=== PATIENT | female | born 1985 | race American Indian/Alaskan Native ===

== ENCOUNTER 2020-09-14 06:08 | Inpatient (IN) | payer OTHER ==
[2020-09-14 08:13] LABS: BILIRUBIN NEGATIVE (NEGATIVE); BLOOD NEGATIVE Ery/uL (NEGATIVE); CLARITY CLEAR (CLEAR); COLOR YELLOW (YELLOW); GLUCOSE (U) NORMAL (NORMAL); LEUKOCYTES 1+ Leu/uL (NEGATIVE); NITRITE NEGATIVE (NEGATIVE); PROTEIN NEGATIVE (NEGATIVE); SPECIFIC GRAVITY 1.015 (1.001-1.030); UROBILINOGEN 0.2 mg/dL (0.2-1.0)
[2020-09-14 08:16] LABS: PLT 299 K/uL (150-400)
[2020-09-14 08:25] LABS: BACTERIA TRACE; SQUAMOUS EPITHELIAL CELLS 20-50; URINARY RBC RARE
[2020-09-14 09:36] LABS: HCT 35.6 % (37.0-47.0); MCH 29.2 pg (25.0-31.0); MCHC 33.7 g/dL (32.0-36.0); MCV 86.6 fL (78.0-100.0); MPV 10.2 fL (6.0-9.5); RBC 4.11 M/uL (4.20-5.40); RDW 13.6 % (11.5-14.0); WBC 7.3 K/uL (4.0-10.5)
[2020-09-15 05:20] LABS: HCT 31.2 % (37.0-47.0); HGB 10.4 g/dl (12.5-16.0); MCH 28.8 pg (25.0-31.0); MCHC 33.3 g/dL (32.0-36.0); MCV 86.4 fL (78.0-100.0); MPV 9.4 fL (6.0-9.5); RBC 3.61 M/uL (4.20-5.40); RDW 13.6 % (11.5-14.0)
[2020-09-16] MEDS ORDERED: MOTRIN600 MG PO (08:55)
[2020-09-16] MEDS ORDERED: FEOSOL325 MG PO (08:56)
[2020-09-16] MEDS ORDERED: PRENATAL FORMU1 EACH PO (08:57)
[2020-09-16] MEDS ORDERED: ORTHO MICRONO0.35 MG PO (09:04)
== END 2020-09-16 11:17 | disposition home or self-care (01) | DRG 807 ==
LOC: FOB 06:08
PROVIDERS: ADMIT Obstetrics & Gynecology
PROC: 10E0XZZ Delivery of Products of Conception, External Approach (ICD-10-PCS; principal; 2020-09-14)
PROC: 10907ZC Drainage of Amniotic Fluid, Therapeutic from Products of Conception, Via Natural or Artificial Opening (ICD-10-PCS; 2020-09-14)
PROC: 0UQMXZZ Repair Vulva, External Approach (ICD-10-PCS; 2020-09-14)
DX: O41.03X0 Oligohydramnios, third trimester, not applicable or unspecified (principal); Z37.0 Single live birth; Z3A.39 39 weeks gestation of pregnancy; O71.82 Other specified trauma to perineum and vulva; Z20.822 Contact with and (suspected) exposure to COVID-19; O69.81X0 Labor and delivery complicated by cord around neck, without compression, not applicable or unspecified
CPT/HCPCS: 36415; 81001; 85049; 86850; 86900; 86901; J7120; U0002

== ENCOUNTER 2021-04-20 16:49 | Inpatient (IN) | payer OTHER ==
[~2021-04-20] VITALS: Ht 162.6 cm; Wt 78.6 kg
[~2021-04-20 16:49] MED LIST: FEOSOL325 MG PO; MOTRIN600 MG PO; ORTHO MICRONO0.35 MG PO; PRENATAL FORMU1 EACH PO
[2021-04-20 17:59] LABS: BASOPHIL 0.2 % (0-2); EOSINOPHIL 0.1 % (0-5); HCT 37.6 % (37.0-47.0); HGB 12.6 g/dl (12.5-16.0); LYMPHOCYTE 5.4 % (15-48); MCH 28.8 pg (25.0-31.0); MCHC 33.5 g/dL (32.0-36.0); MONOCYTE 8.7 % (0-12); MPV 9.4 fL (6.0-9.5); NEUTROPHIL 84.8 % (41-80); NRBC 0; PLT 308 K/uL (150-400); RBC 4.37 M/uL (4.20-5.40); RDW 12.4 % (11.5-14.0); WBC 19.2 K/uL (4.0-10.5)
[2021-04-20 18:16] LABS: ALBUMIN 3.7 g/dL (3.4-5.0); BILIRUBIN - TOTAL 0.8 mg/dL (0.2-1.0); BUN/CREAT RATIO (CALC) 7.5 RATIO; CREATININE 0.8 mg/dL (0.51-0.95); POTASSIUM 3.5 mmol/L (3.5-5.1); TOTAL PROTEIN 7.7 g/dL (6.4-8.2)
[2021-04-20 18:20] LABS: BILIRUBIN NEGATIVE (NEGATIVE); BLOOD 2+ Ery/uL (NEGATIVE); CLARITY CLEAR (CLEAR); COLOR YELLOW (YELLOW); GLUCOSE (U) NORMAL (NORMAL); LEUKOCYTES 2+ Leu/uL (NEGATIVE); NITRITE NEGATIVE (NEGATIVE); PROTEIN 2+ mg/dL (NEGATIVE); SPECIFIC GRAVITY 1.015 (1.001-1.030); UROBILINOGEN 0.2 mg/dL (0.2-1.0)
[2021-04-20 18:29] LABS: BACTERIA 3+; URINARY WBC TNTC
[2021-04-20 19:45] LABS: CORONAVIRUS 2019 SARS-COV-2 NEGATIVE (NEGATIVE); INFLUENZA A NAA NEGATIVE (NEGATIVE)
[2021-04-21 03:57] LABS: BASOPHIL 0.2 % (0-2); EOSINOPHIL 0.2 % (0-5); HCT 33.7 % (37.0-47.0); HGB 11.5 g/dl (12.5-16.0); MCH 29.3 pg (25.0-31.0); MCHC 34.1 g/dL (32.0-36.0); MCV 85.8 fL (78.0-100.0); MONOCYTE 8.1 % (0-12); MPV 9.4 fL (6.0-9.5); NEUTROPHIL 82.7 % (41-80); NRBC 0; PLT 237 K/uL (150-400); RBC 3.93 M/uL (4.20-5.40); RDW 12.5 % (11.5-14.0); WBC 20.4 K/uL (4.0-10.5)
[2021-04-21 04:31] LABS: ALBUMIN 2.8 g/dL (3.4-5.0); BUN/CREAT RATIO (CALC) 10.3 RATIO; CREATININE 0.68 mg/dL (0.51-0.95); GLOBULIN (CALCULATION) 4.2 g/dL
[2021-04-21 20:51] LABS: HCG (URINE) SCREEN NEGATIVE (NEGATIVE)
[2021-04-22 04:42] LABS: BASOPHIL 0.1 % (0-2); EOSINOPHIL 0.3 % (0-5); HCT 33.1 % (37.0-47.0); LYMPHOCYTE 9.8 % (15-48); MCH 28.6 pg (25.0-31.0); MCHC 33.2 g/dL (32.0-36.0); MCV 86.2 fL (78.0-100.0); MONOCYTE 5.6 % (0-12); MPV 9.3 fL (6.0-9.5); NEUTROPHIL 83.6 % (41-80); NRBC 0; PLT 233 K/uL (150-400); RBC 3.84 M/uL (4.20-5.40); RDW 12.6 % (11.5-14.0); WBC 14.4 K/uL (4.0-10.5)
[2021-04-22 05:14] LABS: BUN/CREAT RATIO (CALC) 8.5 RATIO; CREATININE 0.59 mg/dL (0.51-0.95); POTASSIUM 3.8 mmol/L (3.5-5.1)
[2021-04-23] MEDS ORDERED: LEVAQUIN750 MG PO (15:59)
== END 2021-04-23 17:33 | disposition home or self-care (01) | DRG 872 ==
LOC: FER 16:49 → FMS 20:18
PROVIDERS: Internal Medicine; Nurse Practitioner; Nurse Practitioner Family; ADMIT Family Medicine
DX: A41.51 Sepsis due to Escherichia coli [E. coli] (principal); N12 Tubulo-interstitial nephritis, not specified as acute or chronic; Z20.822 Contact with and (suspected) exposure to COVID-19; E87.6 Hypokalemia
CPT/HCPCS: 36415; 71045; 80048; 80053; 81001; 82150; 83605; 84145; 84484; 84703; 85025; 87040; 87076; 87088; 87186; J1650; J1885; J1956; J2405; J2543; J7030; U0002